=== PATIENT | male | born 1980 | race Caucasian/White ===

== ENCOUNTER 2017-04-27 03:00 | Emergency (ER) | payer OTHER ==
[2017-04-27] MEDS ORDERED: METOCLOPRAMIDE HCL INJECTION 10 MG/2 ML VIAL IVPUSH ONE (03:32)
[2017-04-27] MEDS ORDERED: SODIUM CHLORIDE 1,000 ML IV STA (03:32)
--- NOTE | 2017-04-27 03:33 | PDOC ---
Attending Attestation - Resident Resident Name: ShreeKurt - ED Attending Attestation I have performed the following: I have examined & evaluated the patient, The case was reviewed & discussed with the resident, I agree w/resident's findings & plan, Exceptions are as noted - HPI HPI: 04/27/17 03:33 36y M no pmhx presents with headache. Pt notes the headache was gradual in onset , starting just before midnight. pt is pounding, frontal without assoicated n/v , vision changes, numbness/tinging/weakness, neck pain, no associated trauma. Pt has not taken any medication for his headache at home. PT states pain is 5/ 10, currently pain improved to 2/10. pt states his checked his Bp prior to arrival and it was 160s sbp. here his bp is wnl Pts exam is unremarakble neuro exam unremarkable suspect tension headache will treat supportively repeat bp is improved if pt feeling improved will dc with pmd fu - Physicial Exam PE: 04/27/17 03:57 see above - Medical Decision Making 04/27/17 03:58 see above
[2017-04-27 03:48] VITALS: TEMP 97.9; BMI 25.8
[2017-04-27] MEDS ORDERED: ACETAMINOPHEN 325 MG TABLET (FP) PO ONE (03:55)
--- NOTE | 2017-04-27 03:56 | PDOC ---
History of Present Illness - General Chief Complaint: Blood Pressure Problem Stated Complaint: HEADACHE Time Seen by Provider: 04/27/17 03:06 History Source: Patient Exam Limitations: No Limitations - History of Present Illness Initial Comments: 04/27/17 03:45 Patient is a 36M with no significant medical history here today complaining of headache for the past 6 hours. The pain is located along the frontal aspect of his head. Onset was a slow build to maximal headache. Patient reports no sound or light sensitivity. Denies fevers, chills, nausea, vomiting, and neck pain. Patient reports drinking several beers for the holiday. Denies chest pain, shortness of breath and abdominal pain. Past History - Past Medical History Allergies/Adverse Reactions: Allergies Allergy/AdvReac Type Severity Reaction Status Date / Time No Known Allergies Allergy Verified 04/27/17 03:22 Home Medications: Ambulatory Orders NK [No Known Home Medication] 04/27/17 COPD: No - Suicide/Smoking/Psychosocial Hx Smoking History: Never smoked Hx Alcohol Use: Yes (drank for new years tonight) Review of Systems - Review of Systems Comments:: 04/27/17 03:56 GENERAL/CONSTITUTIONAL: No fever or chills. HEAD, EYES, EARS, NOSE AND THROAT: No change in vision. No sore throat. CARDIOVASCULAR: No chest pain or shortness of breath RESPIRATORY: No cough, wheezing, or hemoptysis. GASTROINTESTINAL: No nausea, vomiting, diarrhea or constipation. GENITOURINARY: No dysuria, frequency, or change in urination. MUSCULOSKELETAL: No joint or muscle swelling or pain. No neck or back pain. SKIN: No rash NEUROLOGIC: Positive for headache. Negative for vertigo, loss of consciousness, or change in strength/sensation. ALLERGIC/IMMUNOLOGIC: No hives or skin allergy. *Physical Exam - Vital Signs Last Vital Signs Temp Pulse Resp BP Pulse Ox 97.9 F 93 H 16 142/98 98 04/27/17 03:22 04/27/17 03:22 04/27/17 03:22 04/27/17 03:22 04/27/17 03:22 - Physical Exam Comments: 04/27/17 03:58 GENERAL: Awake, alert, and fully oriented, in no acute distress HEAD: No signs of trauma, normocephalic, atraumatic EYES: PERRLA, EOMI, sclera anicteric, conjunctiva clear ENT: Auricles normal inspection, hearing grossly normal, nares patent, oropharynx clear without exudates. Moist mucosa NECK: Normal ROM, supple, no lymphadenopathy, JVD, or masses LUNGS: No distress, speaks full sentences, clear to auscultation bilaterally HEART: Regular rate and rhythm, normal S1 and S2, no murmurs, rubs or gallops, peripheral pulses normal and equal bilaterally. EXTREMITIES: Normal inspection, Normal range of motion, no edema. No clubbing or cyanosis. NEUROLOGICAL: Cranial nerves II through XII grossly intact. Normal speech, normal gait, no focal sensorimotor deficits SKIN: Warm, Dry, normal turgor, no rashes or lesions noted. Medical Decision Making - Medical Decision Making 04/27/17 03:58 Patient is a 36M with headache. Vital signs stable and normal. Headache most consistent with tension headache and hangover. Will treat with reglan and iv fluids. Will re-evaluate and likely discharge. 04/27/17 04:26 Patient reassessed, says his headache feels much better. Alert, ambulatory and improved at discharge. *DC/Admit/Observation/Transfer Diagnosis at time of Disposition: Headache - Discharge Dispostion Disposition: HOME Condition at time of disposition: Improved Admit: No - Referrals Referrals: Zaheer Bird MD [Primary Care Provider] - - Patient Instructions Printed Discharge Instructions: DI for Headache Additional Instructions: Please return if you have any new, worsening or concerning symptoms. Please follow up with your PCP this week. - Post Discharge Activity
[2017-04-27] MEDS ORDERED: ACETAMINOPHEN 325 MG TABLET (FP) ONE (04:07)
[2017-04-27] MEDS ORDERED: METOCLOPRAMIDE HCL INJECTION 10 MG/2 ML VIAL ONE (04:08)
[2017-04-27 05:01] VITALS: BP 113/72; PULSE 76
== END 2017-04-27 05:01 | disposition home or self-care (01) ==
LOC: JER 03:00
PROC: 3E033GC Introduction of Other Therapeutic Substance into Peripheral Vein, Percutaneous Approach (ICD-10-PCS; principal; 2017-04-27)
DX: G44.209 Tension-type headache, unspecified, not intractable (principal)
CPT/HCPCS: 99281-25

== ENCOUNTER 2018-05-12 14:23 | Emergency (ER) | payer OTHER ==
[2018-05-12 14:49] VITALS: TEMP 98.6; BMI 30.9
[2018-05-12] MEDS ORDERED: SODIUM CHLORIDE 1,000 ML IV STA (14:49)
--- NOTE | 2018-05-12 14:49 | PDOC ---
Rapid Medical Evaluation Medical Evaluation: Allergies Allergy/AdvReac Type Severity Reaction Status Date / Time No Known Allergies Allergy Verified 04/27/17 03:22 I have performed a brief in-person evaluation of this patient. The patient presents with a chief complaint of: No sig pmh; c/o fever/chills today; had 1 episode of NBNB emesis today but no longer nauseous; mentions has been drinking alcohol past 3 days (around 4-5 cans of beer/day), but states usually drinks only 3-4 times/week; denies drug use Pertinent physical exam findings: +alcohol on breath, lungs clear, +tachycardia , minimal tongue fasciculation, mild hand tremors I have ordered the following: Labs, IVF, ativan The patient will proceed to the ED for further evaluation. 05/12/18 14:44 Discharge Disposition - Referrals Referrals: Zaheer Bird MD [Primary Care Provider] - - Patient Instructions - Post Discharge Activity
[2018-05-12 15:37] LABS: BASO % 0.6 % (0-2.0); EOS % 0.2 % (0-4.5); HEMATOCRIT 44.9 % (35.4-49); HEMOGLOBIN 16.2 GM/dL (11.7-16.9); LYMPH % 21.8 % (8-40); MEAN CELL VOLUME 94.2 fl (80-96); MEAN PLT VOLUME 10.2 fl (7.5-11.1); NEUT % 72.4 % (42.8-82.8); PLATELET COUNT 112 K/MM3 (134-434); RBC 4.76 M/mm3 (4.00-5.60); RDW 12.9 % (11.9-15.9); WHITE BLOOD COUNT 3.8 K/mm3 (4.0-10.0)
[2018-05-12] MEDS ORDERED: LORazepam 2 MG/ML SDV VIAL ONE (16:02)
[2018-05-12 16:07] LABS: ALBUMIN 4.4 g/dl (3.4-5.0); ALK PHOS 87 U/L (45-117); ANION GAP 13 MMOL/L (8-16); BLOOD UREA NITROGEN 8 mg/dL (7-18); CALCIUM 8.5 mg/dL (8.5-10.1); CHLORIDE 97 mmol/L (98-107); CO2 26 mmol/L (21-32); CREATININE 0.6 mg/dL (0.55-1.3); GLUCOSE,RANDOM 201 mg/dL (74-106); POTASSIUM 3.8 mmol/L (3.5-5.1); SGOT/AST 249 U/L (15-37); SGPT/ALT 180 U/L (13-61); SODIUM 136 mmol/L (136-145); TOT PROT 8.1 g/dl (6.4-8.2)
--- NOTE | 2018-05-12 16:27 | PDOC ---
History of Present Illness - General History Source: Patient Exam Limitations: No Limitations - History of Present Illness Initial Comments: 05/12/18 16:54 The patient is a 37-year-old male, with a past medical history of HTN (not on meds), who presents to the ED for alcohol intoxication and subjective fever. The patient reports experiencing 1 episode of vomiting, nonbloody/nonbilious and chills today. Nausea has now resolved. He states that he stopped drinking alcohol for a month, but drank beer and whiskey until 6 PM last night. He denies any recent sick contacts. The patient denies any sore throat, cough, diarrhea, or abdominal pain. He denies any chest pain or shortness of breath. He denies any urinary symptoms. Allergies: NKA Social History: Reports alcohol use. Denies any tobacco or drug use. Surgical History: None reported. PCP: Dr. Zaheer Bird <Basilia Arana - Last Filed: 05/12/18 17:04> <Radha Villagomez - Last Filed: 05/12/18 20:26> - General Chief Complaint: Alcohol intoxication Stated Complaint: alcohol withdrwal Time Seen by Provider: 05/12/18 16:17 Past History <Basilia Arana - Last Filed: 05/12/18 17:04> - Past Medical History COPD: No Diabetes: No Dialysis: No - Surgical History GI Surgery: No Neurologic Surgery: No - Immunization History Immunization Up to Date: No - Suicide/Smoking/Psychosocial Hx Smoking History: Current every day smoker Have you smoked in the past 12 months: No Information on smoking cessation initiated: No Hx Alcohol Use: Yes Drug/Substance Use Hx: No <Radha Villagomez - Last Filed: 05/12/18 20:26> - Past Medical History Allergies/Adverse Reactions: Allergies Allergy/AdvReac Type Severity Reaction Status Date / Time No Known Allergies Allergy Verified 04/27/17 03:22 Home Medications: Ambulatory Orders Amlodipine Besylate [Norvasc -] 5 mg PO DAILY #14 tablet 05/12/18 Azithromycin [Zithromax 250mg Tablets -] 250 mg PO UTDICT #6 tab 05/12/18 Review of Systems - Review of Systems Able to Perform ROS?: Yes Comments:: 05/12/18 16:55 GENERAL/CONSTITUTIONAL: (+)subjective fever, chills. No weakness. HEAD, EYES, EARS, NOSE AND THROAT: No change in vision. No ear pain or discharge. No sore throat. CARDIOVASCULAR: No chest pain or shortness of breath. RESPIRATORY: No cough, wheezing, or hemoptysis. SKIN: No rash GASTROINTESTINAL: (+)Nausea, vomiting. No diarrhea or constipation. GENITOURINARY: No dysuria, frequency, or change in urination. MUSCULOSKELETAL: No joint or muscle swelling or pain. No neck or back pain. NEUROLOGIC: No headache, vertigo, loss of consciousness, or change in strength/ sensation. ENDOCRINE: No increased thirst. No abnormal weight change. HEMATOLOGIC/LYMPHATIC: No anemia, easy bleeding, or history of blood clots. ALLERGIC/IMMUNOLOGIC: No hives or skin allergy. <Basilia Arana - Last Filed: 05/12/18 17:04> *Physical Exam - Vital Signs Last Vital Signs Temp Pulse Resp BP Pulse Ox 98.6 F 131 H 18 177/129 H 97 05/12/18 14:44 05/12/18 14:44 05/12/18 14:44 05/12/18 14:44 05/12/18 14:44 - Physical Exam Comments: 05/12/18 17:05 GENERAL: (+)Smell of alcohol on breath. Awake, alert, and fully oriented, in no acute distress HEAD: No signs of trauma EYES: PERRLA, EOMI, sclera anicteric, conjunctiva clear ENT: Auricles normal inspection, hearing grossly normal, nares patent, oropharynx clear without exudates. Moist mucosa. No tongue fasciculations. NECK: Normal ROM, supple, no lymphadenopathy, JVD, or masses LUNGS: Breath sounds equal, clear to auscultation bilaterally. No wheezes, and no crackles HEART: (+)Tachy. Normal S1 and S2, no murmurs, rubs or gallops ABDOMEN: Soft, nontender, normoactive bowel sounds. No guarding, no rebound. No masses EXTREMITIES: Normal range of motion, no edema. No clubbing or cyanosis. No cords, erythema, or tenderness NEUROLOGICAL: No tremors. Cranial nerves II through XII grossly intact. Normal speech, normal gait SKIN: Warm, Dry, normal turgor, no rashes or lesions noted <Basilia Arana - Last Filed: 05/12/18 17:04> - Vital Signs Last Vital Signs Temp Pulse Resp BP Pulse Ox 98.6 F 131 H 18 177/129 H 97 05/12/18 14:44 05/12/18 14:44 05/12/18 14:44 05/12/18 14:44 05/12/18 14:44 <Radha Villagomez - Last Filed: 05/12/18 20:26> Moderate Sedation - Procedure Monitoring Vital Signs: Procedure Monitoring Vital Signs Temperature 98.6 F 05/12/18 14:44 Pulse Rate 131 H 05/12/18 14:44 Respiratory Rate 18 05/12/18 14:44 Blood Pressure 177/129 H 05/12/18 14:44 O2 Sat by Pulse Oximetry (%) 97 05/12/18 14:44 <Basilia Arana - Last Filed: 05/12/18 17:04> - Procedure Monitoring Vital Signs: Procedure Monitoring Vital Signs Temperature 98.6 F 05/12/18 14:44 Pulse Rate 131 H 05/12/18 14:44 Respiratory Rate 18 05/12/18 14:44 Blood Pressure 177/129 H 05/12/18 14:44 O2 Sat by Pulse Oximetry (%) 97 05/12/18 14:44 <Radha Villagomez - Last Filed: 05/12/18 20:26> Heart Score/ECG Review - ECG Intrepretation Comment:: 05/12/18 17:40 sinus tach at 104, t wave inversions inferior leads, t wave inversions v4-6, lvh , abnl ekg <Radha Villagomez - Last Filed: 05/12/18 20:26> ED Treatment Course - LABORATORY CBC & Chemistry Diagram: 05/12/18 15:18 05/12/18 15:18 - ADDITIONAL ORDERS Additional order review: Laboratory Results 05/12/18 15:18 Sodium 136 Potassium 3.8 Chloride 97 L Carbon Dioxide 26 Anion Gap 13 BUN 8 Creatinine 0.6 Creat Clearance w eGFR > 60 Random Glucose 201 H Calcium 8.5 Total Bilirubin 1.0 AST 249 H ALT 180 H Alkaline Phosphatase 87 Total Protein 8.1 Albumin 4.4 Alcohol, Quantitative 209.4 H 05/12/18 15:18 RBC 4.76 MCV 94.2 MCHC 36.0 H RDW 12.9 MPV 10.2 Neutrophils % 72.4 Lymphocytes % 21.8 Monocytes % 5.0 Eosinophils % 0.2 Basophils % 0.6 - Medications Given in the ED: ED Medications Discontinued Medications Generic Name Dose Route Start Last Admin Trade Name Garland PRN Reason Stop Dose Admin Sodium Chloride 1,000 mls @ 1,000 mls/hr 05/12/18 14:49 05/12/18 16:08 Normal Saline - IV 05/12/18 15:48 1,000 mls/hr ASDIR STA Administration Lorazepam 2 mg 05/12/18 14:53 05/12/18 16:08 Ativan Injection - IVPUSH 05/12/18 14:54 2 mg ONCE ONE Administration <Basilia Arana - Last Filed: 05/12/18 17:04> - LABORATORY CBC & Chemistry Diagram: 05/12/18 15:18 05/12/18 15:18 - ADDITIONAL ORDERS Additional order review: Laboratory Results 05/12/18 15:18 Sodium 136 Potassium 3.8 Chloride 97 L Carbon Dioxide 26 Anion Gap 13 BUN 8 Creatinine 0.6 Creat Clearance w eGFR > 60 Random Glucose 201 H Calcium 8.5 Total Bilirubin 1.0 AST 249 H ALT 180 H Alkaline Phosphatase 87 Total Protein 8.1 Albumin 4.4 Alcohol, Quantitative 209.4 H 05/12/18 15:18 RBC 4.76 MCV 94.2 MCHC 36.0 H RDW 12.9 MPV 10.2 Neutrophils % 72.4 Lymphocytes % 21.8 Monocytes % 5.0 Eosinophils % 0.2 Basophils % 0.6 - Medications Given in the ED: ED Medications Discontinued Medications Generic Name Dose Route Start Last Admin Trade Name Garland PRN Reason Stop Dose Admin Sodium Chloride 1,000 mls @ 1,000 mls/hr 05/12/18 14:49 05/12/18 16:08 Normal Saline - IV 05/12/18 15:48 1,000 mls/hr ASDIR STA Administration Lorazepam 2 mg 05/12/18 14:53 05/12/18 16:08 Ativan Injection - IVPUSH 05/12/18 14:54 2 mg ONCE ONE Administration <Radha Villagomez - Last Filed: 05/12/18 20:26> Medical Decision Making - Medical Decision Making 05/12/18 16:26 a/p: 37yo male with hx of etoh use and htn presents for eval of subjective fever today -1 episode of nbnb vomitus -no complaints at this time -no cough, no sore throat, no dysuria. -no cp/sob, no abd pain, no rash, no diarrhea -admits to ETOH yesterday - beer and whiskey - first time he drank in over a month. -no tongue fasciculations or tremors on exam -labs sent from [facility] -will send for RUQ ultrasound -will add UA, cxr 05/12/18 17:40 labs reviewed elevated lft RUQ ultrasound shows hepatic steatosis pending UA and repeat vitals 05/12/18 20:20 at the bedside discussed all lab results with the patient and his discussed elevated lft, elevated glucose discussed EKG discussed trop x 2 discussed follow up with PMD discussed repeat labs as outpt discussed ultrasound results pt states feeling much better will dc home with norvasc and with zithromax answered all questions discussed stoping alcohol use <Radha Villagomez - Last Filed: 05/12/18 20:26> *DC/Admit/Observation/Transfer - Attestations Scribe Attestion: 05/12/18 17:08 Documentation prepared by Basilia Arana, acting as medical authorization specialist for Radha Villagomez DO. <Basilia Arana - Last Filed: 05/12/18 17:04> - Discharge Dispostion Decision to Admit order: No - Attestations Physician Attestion: 05/12/18 20:26 I, Dr. Radha Villagomez DO, attest that this document has been prepared under my direction and personally reviewed by me in its entirety. I further attest, that it accurately reflects all work, treatment, procedures and medical decision -making performed by me. <Radha Villagomez - Last Filed: 05/12/18 20:26> Diagnosis at time of Disposition: Alcohol use disorder, Uncontrolled hypertension, Abnormal EKG, Transaminitis, Elevated random blood glucose level - Discharge Dispostion Disposition: HOME Condition at time of disposition: Fair - Prescriptions Prescriptions: Amlodipine Besylate [Norvasc -] 5 mg PO DAILY #14 tablet Azithromycin [Zithromax 250mg Tablets -] 250 mg PO UTDICT #6 tab - Referrals Referrals: Zaheer Bird MD [Primary Care Provider] - Tyler Fairbanks MD [Staff Physician] - - Patient Instructions Printed Discharge Instructions: DI for Alcohol Abuse, Essential Hypertension Additional Instructions: Please have your glucose checked again as an outpatient. Please make an appointment with your PMD for the next 2-3 days. Please take all medications as prescribed. Please have your lab work repeated as an outpatient. Please also follow-up with the paleontological helper. Please stop drinking alcohol. Please return to the ED with any further concerns or complaints. - Post Discharge Activity
[2018-05-12] MEDS ORDERED: amLODIPine BESYLATE 5 MG TABLET (FP) PO ONE (16:33)
[2018-05-12] MEDS ORDERED: amLODIPine BESYLATE 5 MG TABLET (FP) ONE (16:38)
[2018-05-12 18:15] LABS: URINE APPEARANCE CLEAR; URINE BILIRUBIN NEGATIVE (<2.0 mg/dL); URINE COLOR STRAW; URINE GLUCOSE (UA) 1+ (NEGATIVE); URINE KETONE TRACE (NEGATIVE); URINE LEUK ESTERASE NEGATIVE (NEGATIVE); URINE NITRITE NEGATIVE (NEGATIVE); URINE PROTEIN 2+ (NEGATIVE); URINE UROBILINOGEN NEGATIVE mg/dL (0.2-1.0)
[2018-05-12] MEDS ORDERED: AZITHROMYCIN 250 MG TABLET PO ONE (19:02)
[2018-05-12] MEDS ORDERED: AZITHROMYCIN 250 MG TABLET ONE (19:15)
[2018-05-12 20:42] VITALS: BP 148/98; PULSE 104
--- NOTE | 2018-05-13 11:57 | EKG ---
Test Reason : Blood Pressure : / mmHG Vent. Rate : 104 BPM Atrial Rate : 104 BPM P-R Int : 164 ms QRS Dur : 094 ms QT Int : 336 ms P-R-T Axes : 040 033 -46 degrees QTc Int : 441 ms SINUS TACHYCARDIA T WAVE ABNORMALITY, CONSIDER INFEROLATERAL ISCHEMIA ABNORMAL ECG NO PREVIOUS ECGS AVAILABLE Confirmed by TROY HODGSON, DARYL ([id number]) on 05/13/2018 11:57:10 AM Referred By: Confirmed By:DARYL SIMMONS MD
== END 2018-05-12 20:46 | disposition home or self-care (01) ==
LOC: JER 14:23
PROC: 3E033NZ Introduction of Analgesics, Hypnotics, Sedatives into Peripheral Vein, Percutaneous Approach (ICD-10-PCS; principal; 2018-05-12)
PROC: 3E0337Z Introduction of Electrolytic and Water Balance Substance into Peripheral Vein, Percutaneous Approach (ICD-10-PCS; 2018-05-12)
DX: I10 Essential (primary) hypertension (principal); R94.31 Abnormal electrocardiogram [ECG] [EKG]; R74.0 Nonspecific elevation of levels of transaminase and lactic acid dehydrogenase [LDH]; F10.10 Alcohol abuse, uncomplicated
CPT/HCPCS: 36415; 71045-TC-FY; 76705-TC; 80053; 80307; 81003; 81015; 82550; 82553; 84443; 84484; 85025; 93005; 93010; 99284-25; J7030

== ENCOUNTER 2018-05-16 06:22 | Emergency (ER) | payer OTHER ==
[2018-05-16 06:48] VITALS: BMI 24.7
[2018-05-16] MEDS ORDERED: chlordiazePOXIDE HCL 25 MG CAPSULE PO ONE ×4 (07:28→11:09)
[2018-05-16] MEDS ORDERED: chlordiazePOXIDE HCL 25 MG CAPSULE ONE ×3 (07:35→11:15)
--- NOTE | 2018-05-16 07:35 | PDOC ---
History of Present Illness - General Chief Complaint: Substance Abuse Stated Complaint: ALCOHOL WITHDRAWL Time Seen by Provider: 05/16/18 07:10 - History of Present Illness Initial Comments: Earnestine Shrestha is a 37yo man with a PMH of HTN and alcohol abuse, recently seen in the ED with alcohol intoxication on 05/12/18, who presents with tremors and auditory hallucinations after he stopped drinking 4 days ago. Mr Shrestha reports that he usually has "6 beers between 2 days" or roughly 3-4 per day, though he does report having vodka with juice about 2x per week as well. He indicates that he usually fills the glass with 2-3 inches of vodka and counts this as perhaps 2 drinks. After he was seen in the ED on the , he was concerned about his drinking and stopped at that time. He states his last drink was Thursday. On the he and his noticed that his hands were shaking a lot, and he was nauseated. Since then his shaking has decreased, and he has been able to eat/drink without any difficulty. He denies any nausea, vomiting, change in bowel habits, headache, or sweating. He was feeling relatively well yesterday and went to work in the afternoon with no problems. However, today he started having auditory hallucinations; he reports that he is hearing music. Mr Shrestha denies any visual or tactile hallucinations. He denies ever having any symptoms of alcohol withdrawl in the past, though there have been periods where he did not drink. He denies any history of depression, anxiety, or previous hallucinations. Past History - Past Medical History Allergies/Adverse Reactions: Allergies Allergy/AdvReac Type Severity Reaction Status Date / Time No Known Allergies Allergy Verified 05/16/18 06:45 Home Medications: Ambulatory Orders Amlodipine Besylate [Norvasc -] 5 mg PO DAILY #14 tablet 05/12/18 Azithromycin [Zithromax 250mg Tablets -] 250 mg PO UTDICT #6 tab 05/12/18 Propranolol HCl 80 mg PO DAILY 05/16/18 Anemia: No Asthma: No Cancer: No Cardiac Disorders: No CVA: No COPD: No CHF: No DVT: No Dementia: No Diabetes: No Dialysis: No GI Disorders: No Disorders: No HTN: No Hypercholesterolemia: No Kidney Stones: No Liver Disease: No Psychiatric Problems: No Seizures: No Thyroid Disease: No Lung CA: No - Surgical History Abdominal Surgery: No Appendectomy: No Cardiac Surgery: No Cholecystectomy: No Gastric Stapling: No GI Surgery: No Lung Surgery: No Neurologic Surgery: No - Immunization History Immunization Up to Date: No - Suicide/Smoking/Psychosocial Hx Smoking History: Never smoked Have you smoked in the past 12 months: No Information on smoking cessation initiated: No Hx Alcohol Use: Yes Drug/Substance Use Hx: No Review of Systems - Review of Systems Comments:: General: No fevers, no chills, no weight or appetite change, no malaise HEENT: No changes in vision, no changes in hearing, no congestion, no sore throat CV: No chest pain, no palpitations, no LE edema Pulm: No SOB, no cough, no wheezing GI: No nausea or vomiting, no change in bowel habits, no melena : No frequency, no urgency, no dysuria Musc: No back pain, no joint swelling, no recent injury Skin: No rash, no lesions, no erythema Endo: No excessive thirst, no heat/cold intolerance Heme: No unusual bruising or bleeding, no swollen glands Neuro: No syncope, no numbness/tingling, no focal weakness. +hands trembling Vasc: No claudication Psych: No recent change in mood, no SI or HI. +auditory hallucinations, + alcohol abuse *Physical Exam - Vital Signs Last Vital Signs Temp Pulse Resp BP Pulse Ox 98.6 F 76 18 166/108 H 100 05/16/18 06:45 05/16/18 06:45 05/16/18 06:45 05/16/18 06:45 05/16/18 06:45 - Physical Exam Comments: General: Anxious, no acute distress HEENT: PERRL, EOMI, MMM, voice normal, normal neck ROM, no LAD Cards: RRR, no murmur appreciated Pulm: Comfortable on room air, clear to auscultation bilaterally Abd: Soft, nontender, nondistended : No CVA tenderness Ext: Atraumatic. No LE edema. ROM intact. Strength 5/5 and equal bilaterally Vasc: Extremities WWP. Palpable radial and pedal pulses bilaterally Skin: Normal color, no rashes or lesions Neuro: A&Ox3, CN grossly intact, normal speech, motor/sensory grossly intact and symmetric, no ataxia, no nystagmus Psych: Mood appropriate to situation Moderate Sedation - Procedure Monitoring Vital Signs: Procedure Monitoring Vital Signs Temperature 98.6 F 05/16/18 06:45 Pulse Rate 76 05/16/18 06:45 Respiratory Rate 18 05/16/18 06:45 Blood Pressure 166/108 H 05/16/18 06:45 O2 Sat by Pulse Oximetry (%) 100 05/16/18 06:45 ED Treatment Course - LABORATORY CBC & Chemistry Diagram: 05/16/18 07:37 05/16/18 07:37 Medical Decision Making - Medical Decision Making 05/16/18 07:33 Earnestine Shrestha is a 37yo man with a PMH of HTN and alcohol abuse, recently seen in the ED with alcohol intoxication on 05/12/18, who presents with tremors and auditory hallucinations after he stopped drinking 4 days ago. - Relatively reassuring physical exam without neurological changes, diaphoresis. - Auditory hallucinations uncommon with alcohol withdrawal, but no h/o any other mental health problems - CBC, CMP, mag, phos, UA, Utox - Pt appears agreeable to detox; plan to call [facility] once labs resulted - Librium 50mg PO for withdrawal 05/16/18 08:24 - Labs reviewed. Notable for elevations in AST 196, ALT 204. Otherwise unremarkable - Need to send urine sample 05/16/18 09:02 - Discussed admission to detox with Mr Shrestha and his . He reports that he needs to go to work today; discussed with pt that he should not go to work while actively withdrawing from alcohol for his and others' safety. He and his will discuss. 05/16/18 09:54 - Significant imrpovement after receiving librium; no longer having auditiory hallucinations - Mr Shrestha and his are agreeable to detox - Spoke to accepting physician at [facility]; some concern that Mr Shrestha is not medically clear. However, given significant improvement with only 50mg librium will re-contact once urine tox is available. Will be medically clear for transfer. 05/16/18 10:50 - UA negative. UDS negative - Medically cleared for detox - Call placed to [facility] 05/16/18 11:01 - Accepted to [facility] for detox. Per request, will give additional 50mg librium prior to discharge - Updated Mr Shrestha and his . They state understanding. Noted that pt is due for his home doses of propranolol 80mg and azithromycin 250mg. Will give home meds prior to discharge. Discussed with Dr Alva. Christine Baugh PGY1 *DC/Admit/Observation/Transfer Diagnosis at time of Disposition: Alcohol withdrawal - Discharge Dispostion Condition at time of disposition: Stable - Referrals Referrals: Zaheer Bird MD [Primary Care Provider] - - Patient Instructions Printed Discharge Instructions: DI for Drug or Alcohol Withdrawal Additional Instructions: Discharge Instructions: Proceed to [facility] detox for admission. The staff at detox will be expecting your arrival. Continue to take your previously prescribed home medications as directed. You received your azithromycin 250mg and propranolol 80mg at 11am today. - Post Discharge Activity Forms/Work/School Notes: Back to Work
[2018-05-16 08:07] LABS: BASO % 0.6 % (0-2.0); EOS % 2.2 % (0-4.5); HEMATOCRIT 42.8 % (35.4-49); HEMOGLOBIN 15.2 GM/dL (11.7-16.9); LYMPH % 32.4 % (8-40); MCH 33.6 pg (25.7-33.7); MCHC 35.5 g/dl (32.0-35.9); MEAN CELL VOLUME 94.4 fl (80-96); MEAN PLT VOLUME 10.1 fl (7.5-11.1); MONO % 14.2 % (3.8-10.2); NEUT % 50.6 % (42.8-82.8); PLATELET COUNT 104 K/MM3 (134-434); RBC 4.53 M/mm3 (4.00-5.60); RDW 12.3 % (11.9-15.9); WHITE BLOOD COUNT 3.9 K/mm3 (4.0-10.0)
[2018-05-16 08:15] LABS: ALBUMIN 4.4 g/dl (3.4-5.0); ALK PHOS 90 U/L (45-117); ANION GAP 9 MMOL/L (8-16); BILIRUBIN,TOTAL 0.9 mg/dL (0.2-1); BLOOD UREA NITROGEN 19 mg/dL (7-18); CALCIUM 9.3 mg/dL (8.5-10.1); CHLORIDE 101 mmol/L (98-107); CO2 27 mmol/L (21-32); CREATININE 0.6 mg/dL (0.55-1.3); GLUCOSE,RANDOM 84 mg/dL (74-106); PHOSPHOROUS 4.5 mg/dL (2.5-4.9); POTASSIUM 4.2 mmol/L (3.5-5.1); SGOT/AST 196 U/L (15-37); SGPT/ALT 203 U/L (13-61); SODIUM 137 mmol/L (136-145); TOT PROT 7.8 g/dl (6.4-8.2)
--- NOTE | 2018-05-16 09:31 | PDOC ---
Attending Attestation - Resident Resident Name: Christine Baugh - ED Attending Attestation I have performed the following: I have examined & evaluated the patient, The case was reviewed & discussed with the resident, I agree w/resident's findings & plan, Exceptions are as noted - HPI HPI: 05/16/18 09:25 37 M with h/o HTN presenting to ED with ETOH withdrawal. Pt is daily drinker ( approx 3-4 drinks). Last drink was 3 days ago. Pt now complains of tremors. Also reports auditory hallucinations. States he heard music playing even after the radio was turned off this morning. Denies visual or tactile hallucinations. No prior h/o psych disorder. Denies any other substance use. No h/o withdrawal or DTs. Never had a seizure. - Physicial Exam PE: 05/16/18 09:29 "GENERAL: Awake, alert, and fully oriented, in no acute distress. HEAD: No signs of trauma EYES: PERRLA, EOMI, sclera anicteric, conjunctiva clear ENT: Auricles normal inspection, hearing grossly normal, nares patent, oropharynx clear without exudates. Moist mucosa NECK: Nontender, no stepoffs, Normal ROM, supple, no lymphadenopathy, JVD, or masses LUNGS: Breath sounds equal, clear to auscultation bilaterally. No wheezes, and no crackles HEART: Regular rate and rhythm, normal S1 and S2, no murmurs, rubs or gallops ABDOMEN: Soft, nontender, normoactive bowel sounds. No guarding, no rebound. No masses EXTREMITIES: Normal range of motion, no edema. No clubbing or cyanosis. No cords, erythema, or tenderness NEUROLOGICAL: +mild tremors, Cranial nerves II through XII intact. 5/5 strength and sensation in all extremities, Normal speech, normal gait, normal cerebellar function SKIN: Warm, Dry, normal turgor, no rashes or lesions noted. - Medical Decision Making 05/16/18 09:31 37 M with ETOH withdrawal, mildly tremulous on exam, complaining of auditory hallucinations. Pt is interested in detox. - Labs, Utox - Librium PRN - Txfer to [facility] if bed available 05/16/18 11:45 Labs wnl Pt reassessed - now clinically improved s/p librium. Denies AVH, denies SI/HI. Pt medically cleared, to be transferred to [facility] Pt is well appearing, with normal vitals. Clinically stable for DC at this time. I discussed the physical exam findings, ancillary test results and final diagnoses with the patient. I answered all of the patient's questions. The patient was satisfied with the care received and felt comfortable with the discharge plan and treatment plan. The patient agrees to follow up with the primary care physician within 24-72 hours.
[2018-05-16 10:01] LABS: COCAINE, UR NEGATIVE ng/ml (CUTOFF=300); METHADONE, UR NEGATIVE ng/ml (CUTOFF=300); OPIATES, URI NEGATIVE ng/ml (CUTOFF=300); PHENCYCLIDINE,URINE NEGATIVE ng/ml (CUTOFF=25); URINE AMPHETAMINES NEGATIVE ng/ml (CUTOFF=500); URINE BARBITURATES NEGATIVE ng/ml (CUTOFF=200); URINE BENZODIAZEPINES NEGATIVE ng/ml (CUTOFF=200)
[2018-05-16 10:01] LABS: URINE APPEARANCE CLEAR; URINE BILIRUBIN NEGATIVE (<2.0 mg/dL); URINE COLOR STRAW; URINE GLUCOSE (UA) NEGATIVE (NEGATIVE); URINE KETONE NEGATIVE (NEGATIVE); URINE LEUK ESTERASE NEGATIVE (NEGATIVE); URINE NITRITE NEGATIVE (NEGATIVE); URINE PROTEIN NEGATIVE (NEGATIVE); URINE UROBILINOGEN NEGATIVE mg/dL (0.2-1.0)
[2018-05-16 10:39] VITALS: BP 147/79; PULSE 75; TEMP 98.1
[2018-05-16] MEDS ORDERED: AZITHROMYCIN 250 MG TABLET PO ONE (11:03)
[2018-05-16] MEDS ORDERED: AZITHROMYCIN 250 MG TABLET ONE (11:16)
== END 2018-05-16 11:26 | disposition home or self-care (01) ==
LOC: JER 06:22
DX: F10.230 Alcohol dependence with withdrawal, uncomplicated (principal); I10 Essential (primary) hypertension
CPT/HCPCS: 36415; 80053; 80307; 81003; 83735; 84100; 85025; 99283-25